=== PATIENT | female | born 1965 | race Caucasian/White ===

== ENCOUNTER 2016-05-04 09:30 | Emergency (ER) | payer MEDICAID, OTHER ==
[2016-05-04 09:45] VITALS: TEMP 97.7; O2SAT 98
--- NOTE | 2016-05-04 10:14 | EDPHY ---
H & P Stated Complaint: wednesday massaging l neck became dizzy/lost vision in l eye transiently Time Seen by Provider: 05/04/16 10:13 - Personal History LMP (Females 10-55): 8-14 Days Ago Current Tetanus/Diphtheria Vaccine: Yes - Medical/Surgical History Hx Asthma: No Hx Chronic Respiratory Disease: No Hx Diabetes: No Hx Cardiac Disease: No Hx Renal Disease: No Hx Cirrhosis: No Hx Alcoholism: No Hx HIV/AIDS: No Hx Splenectomy or Spleen Trauma: No Other PMH: tmj - Social History Smoking Status: Never smoked Constitutional: Initial Vital Signs Temperature (C) 36.5 C 05/04/16 09:42 Heart Rate 63 05/04/16 09:42 Respiratory Rate 18 05/04/16 09:42 Blood Pressure 142/103 H 05/04/16 09:42 O2 Sat (%) 98 05/04/16 09:42 O2 Delivery Mode Room Air Allergies/Adverse Reactions: iodine Allergy (Verified 05/04/16 11:10) Home Medications: Medication Instructions Recorded NK [No Known Home Meds] 05/04/16 Medical Decision Making ED Course/Re-evaluation: CHIEF COMPLAINT: Lightheadedness, vision loss HISTORY OF PRESENT ILLNESS: The patient is a 51 y/o female complaining of a brief episode of lightheadedness and vision loss on Wednesday, 3 days ago, while massaging the left side of her throat. She describes "deeply" massaging the left side of her throat due to chronic TMJ disorder and experiencing sudden lightheadedness, nausea, loss of vision in right eye, tingling in all her limbs. This episode lasted about 2 minutes. She also notes ongoing pain in her right shoulder, sternum, and scapula since tooth extraction 2 years ago. REVIEW OF SYSTEMS: A 10 point review of systems was performed and is negative with the exception of the elements mentioned in the history of present illness. PHYSICAL EXAM: HR, BP, O2 Sat, RR. Temp noted General Appearance: Alert, well hydrated, appropriate, and non-toxic appearing. Head: Atraumatic without scalp tenderness or obvious injury Eyes: Pupils equal, round, reactive to light and accommodation, EOMI, no trauma , no injection. Ears: Clear bilaterally, no perforation, normal landmarks Nose: Atraumatic, no rhinorrhea, clear. Throat: There is no erythema or exudates, no lesions, normal tonsils, mucus membranes moist. Neck: Supple, 2+ carotid upstroke, nontender, no lymphadenopathy. Respiratory: No retractions, no distress, no wheezes, and no accessory muscle use. Lungs are clear to auscultation bilaterally. Cardiovascular: Regular rate and rhythm, no murmurs, rubs, or gallops. Bilateral carotid, radial, dorsalis pedis, and posterior tibial pulses intact. Good capillary refill all extremities. Gastrointestinal: Abdomen is soft, nontender, non-distended, no masses, no rebound, no guarding, no peritoneal signs. Musculoskeletal: Normal active ROM of all extremities, atraumatic. Neurological: Alert, appropriate, and interactive. The patient has normal DTRs and non-focal cranial nerves, motor, sensory, and cerebellar exam. Skin: No rashes, good turgor, no nodules on palpation. Past medical history: TMJ, heart murmur Past surgical history: tooth extraction Family history: Noncontributory Social history: Lives in [place] DIAGNOSTICS/PROCEDURES/CRITICAL CARE TIME: Study: CTA of the Chest Indication: Pain Results: CTA scan of the chest was obtained. The results of the study are 1. No evidence of thrombopulmonary embolic disease. 2. Airways disease and minimal bibasilar atelectasis. 3. No fracture, pneumothorax, or explanation for left-sided pain. The study was read by the radiologist, Dr. Ferrell. I viewed the images myself on the PACS system. Study: CTA of the Neck Indication: Pain, lightheadedness Results: CT scan of the neck was obtained. The results of the study are 1. No evidence of thrombopulmonary embolic disease. 2. Airways disease and minimal bibasilar atelectasis. 3. No fracture, pneumothorax, or explanation for left-sided pain. The study was read by the radiologist, Dr. Ferrell. I viewed the images myself on the PACS system. DIFFERENTIAL DIAGNOSIS: The differential diagnosis for the patient's chest pain and vision loss included but was not limited to brief restriction of carotid flow due to physical manipulation of her neck, myocardial ischemia, pulmonary embolus, chest wall pain, pleural inflammation, and pulmonary infectious causes. MEDICAL DECISION MAKING: This is a largely healthy 51 y/o female who presents primarily for a 2-minute episode of lightheadedness and vision loss while massaging her carotid 3 days ago. Those symptoms resolved when she stopped massaging her neck. She also is complaining of a 2-year history of right shoulder, sternum, and scapula pain following a tooth extraction that she has not received a work up for yet. Her exam is unremarkable. Plan for imaging of her neck to rule out acute process. CTAs are negative. I discussed these findings with the patient. I recommended following up with her PCP for continued symptoms and to avoid pushing on her carotids. She agrees with plan. Return precautions given. - Data Points Laboratory Results: 05/04/16 10:59 POC Hgb 15.6 gm/dL gm/dL (12.3-15.9) POC Hct 46 % % (35.5-47.5) POC Sodium 141 mEq/L mEq/L (134-144) POC Potassium 4.5 mEq/L mEq/L (3.3-5.0) POC Chloride 104 mEq/L mEq/L (96-108) POC BUN 13 mg/dL mg/dL (7-23) POC Creatinine 0.7 mg/dL mg/dL (0.6-1.2) POC Glucose 85 mg/dL mg/dL (70-100) Medications Given: Discontinued Medications Diphenhydramine HCl (Benadryl Injection) 50 mg IVP EDNOW ONE Stop: 05/04/16 11:55 Last Admin: 05/04/16 12:01 Dose: 50 mg Methylprednisolone Sodium Succinate (Solu-Medrol) 125 mg IVP EDNOW ONE Stop: 05/04/16 11:55 Last Admin: 05/04/16 12:01 Dose: 125 mg Point of Care Test Results: 05/04/16 10:59 POC Sodium 141 POC Potassium 4.5 POC Chloride 104 POC BUN 13 POC Creatinine 0.7 POC Glucose 85 Departure - Departure Disposition: Home, Routine, Self-Care Clinical Impression: Vasovagal episode Condition: Good Instructions: Near Syncope (ED) Additional Instructions: Follow up with your primary care provider for symptoms not improved over the next 2-3 days. Return to the ED for any worsening of condition. Referrals: NONE *PRIMARY CARE P,. [Primary Care Provider] - As per Instructions Delfina Galvez MD [Medical Doctor] - As per Instructions Report Scribed for: Thaddeus Teague Report Scribed by: Eliana Dewitt Date of Report: 05/04/16 Time of Report: 10:53
[2016-05-04] MEDS ORDERED: methylPREDNISolone SOD SUCC 125 MG/2 ML VIAL ONE (11:53)
[2016-05-04] MEDS ORDERED: methylPREDNISolone SOD SUCC 125 MG/2 ML VIAL IVP ONE (11:54)
[2016-05-04] MEDS ORDERED: IOPAMIDOL (ISOVUE-370) 150 ML BTL IV ONE (12:53)
[2016-05-04 14:26] VITALS: BP 126/91; PULSE 82; RESP 16
== END 2016-05-04 14:26 | disposition home or self-care (01) ==
DX: R55 Syncope and collapse (principal)
CPT/HCPCS: 82947-QW; 96374; J1200; Q9967

== ENCOUNTER → 2018-03-18 | Outpatient (CLI) | payer MEDICAID | LOC: FIMAGING 12:00 | PROVIDERS: ATTEND Family Medicine | DX: E04.1 Nontoxic single thyroid nodule (principal); M48.02 Spinal stenosis, cervical region; M43.12 Spondylolisthesis, cervical region ==